=== PATIENT | female | born 1975 | race Caucasian/White ===

== ENCOUNTER → 2018-08-19 | Outpatient (REF) | payer SELFPAY | LOC: M SFHCPLAZ 09:41 → EEVIPCON 09:41 → M SFHCPLAZ 08-20 09:39 | PROVIDERS: ATTEND Dermatology | DX: R21 Rash and other nonspecific skin eruption (principal) ==

== ENCOUNTER → 2019-01-03 | Outpatient (REF) | payer OTHER, SELFPAY ==
[2019-01-03 16:36] LABS: C REACTIVE PROTEIN QUANTITATIV 0.31 MG/DL (0.00-0.30); IMMUNOGLOBULIN M 61.2 MG/DL (40-230)
[2019-01-06 00:06] LABS: Lyme Disease IgG/IgM Antibodie <0.91 ISR (0.00-0.90); Lyme Disease IgM Ab Quantitati <0.80 index (0.00-0.79)
== END ==
LOC: M SFHCPLAZ 13:03
PROVIDERS: ATTEND Internal Medicine Infectious Disease
DX: J18.9 Pneumonia, unspecified organism (principal); A49.02 Methicillin resistant Staphylococcus aureus infection, unspecified site